=== PATIENT | male | born 1970 | race American Indian/Alaskan Native ===

== ENCOUNTER 2017-04-07 21:13 | Emergency (ER) | payer OTHER ==
--- NOTE | 2017-04-07 21:36 | Emergency Department Report ---
ED Extremity Problem HPI - General Stated complaint: LT LEG PAIN Time Seen by Provider: 04/07/17 21:34 Source: patient, EMS Mode of arrival: Stretcher Limitations: No Limitations - History of Present Illness Initial comments: 46 YO MALE THAT FELL DOWN ABOUT 8-10 STEPS AT HOME. PER EMS , HE HAD LEFT LEG SWELLING AND DEFORMITY. PT C/O LEFT LEG PAIN AND SWELLING . NO NUMBNESS ANYWHERE. MD Complaint: extremity pain, extremity swelling, joint swelling -: Sudden, hour(s) (1HR) Location: left, lower extremity History of Same: No Severity scale (0 -10): 10 Quality: aching, constant Consistency: constant Improves with: immobilization, rest Worsens with: weight bearing, walking, exertion Associated Symptoms: denies other symptoms - Related Data Home Medications Medication Instructions Recorded Confirmed Last Taken Aspirin EC [Aspirin Enteric Coated 81 mg PO QDAY 10/29/15 10/29/15 2 Days Ago TAB] ~10/27/15 Previous Rx's Medication Instructions Recorded Last Taken Type Famotidine [Pepcid] 20 mg PO DAILY #14 tablet 10/30/15 Unknown Rx Nicotine [Habitrol] 21 mg TD QDAY #30 patch 10/30/15 Unknown Rx Naproxen [Naprosyn] 500 mg PO BID #20 tablet 04/07/17 Unknown Rx oxyCODONE /ACETAMINOPHEN [Percocet 2 tab PO Q6HR PRN #14 tablet 04/07/17 Unknown Rx 5/325] Allergies Allergy/AdvReac Type Severity Reaction Status Date / Time No Known Allergies Allergy Verified 10/29/15 12:23 ED Review of Systems ROS: Stated complaint: LT LEG PAIN Other details as noted in HPI Constitutional: denies: chills, fever Eyes: denies: eye pain, eye discharge, vision change ENT: denies: ear pain, throat pain Respiratory: denies: cough, shortness of breath, wheezing Cardiovascular: denies: chest pain, palpitations Endocrine: no symptoms reported Gastrointestinal: denies: abdominal pain, nausea, diarrhea Genitourinary: denies: urgency, dysuria Musculoskeletal: joint swelling, arthralgia. denies: back pain Skin: denies: rash, lesions Neurological: denies: headache, weakness, paresthesias Psychiatric: denies: anxiety, depression Hematological/Lymphatic: denies: easy bleeding, easy bruising ED Past Medical Hx - Past Medical History Previous Medical History?: Yes Hx Congestive Heart Failure: No Hx Diabetes: No Hx Pulmonary Embolism: No Hx Asthma: No Hx COPD: No Hx HIV: No - Surgical History Hx Open Heart Surgery: No Hx Cholecystectomy: No Hx Appendectomy: No Hx Breast Surgery: No - Family History Family history: hypertension - Social History Smoking Status: Current Every Day Smoker - Medications Home Medications: Home Medications Medication Instructions Recorded Confirmed Last Taken Type Aspirin EC [Aspirin Enteric Coated 81 mg PO QDAY 10/29/15 10/29/15 2 Days Ago History TAB] ~10/27/15 Famotidine [Pepcid] 20 mg PO DAILY #14 tablet 10/30/15 Unknown Rx Nicotine [Habitrol] 21 mg TD QDAY #30 patch 10/30/15 Unknown Rx Naproxen [Naprosyn] 500 mg PO BID #20 tablet 04/07/17 Unknown Rx oxyCODONE /ACETAMINOPHEN [Percocet 2 tab PO Q6HR PRN #14 tablet 04/07/17 Unknown Rx 5/325] ED Physical Exam - General General appearance: alert, in no apparent distress - Head Head exam: Present: atraumatic, normocephalic - Eye Eye exam: Present: normal appearance, EOMI - ENT ENT exam: Present: mucous membranes moist - Neck Neck exam: Present: normal inspection, full ROM - Respiratory Respiratory exam: Present: normal lung sounds bilaterally. Absent: respiratory distress, wheezes, rales - Cardiovascular Cardiovascular Exam: Present: regular rate, normal rhythm. Absent: systolic murmur, diastolic murmur, rubs, gallop - GI/Abdominal GI/Abdominal exam: Present: soft, normal bowel sounds - Rectal Rectal exam: Present: deferred - Extremities Exam Extremities exam: Present: normal inspection, tenderness (OVER THE LEFT PATELLAE ,NO DISLOCATION,NO ERYTHEMA) - Back Exam Back exam: Present: normal inspection, full ROM - Neurological Exam Neurological exam: Present: alert, oriented X3, CN II-XII intact - Psychiatric Psychiatric exam: Present: normal affect, normal mood - Skin Skin exam: Present: warm, dry, intact, normal color. Absent: rash ED Course Vital Signs 04/07/17 04/07/17 21:54 22:12 Temperature 98 F Pulse Rate 84 Respiratory 20 Rate Blood Pressure 143/82 ED Medical Decision Making - Radiology Data Radiology results: report reviewed (XRAY LEFT TIB/FIB/KNEE/FEMUR: NO ACUTE FRACTURE, PATELLA SAUL) Critical care attestation.: If time is entered above; I have spent that time in minutes in the direct care of this critically ill patient, excluding procedure time. ED Disposition Clinical Impression: Patella saul Strain of knee and leg, left Qualifiers: Encounter type: initial encounter Qualified Code(s): S86.912A - Strain of unspecified muscle(s) and tendon(s) at lower leg level, left leg, initial encounter Disposition: TO HOME OR SELFCARE Is pt being admited?: No Does the pt Need Aspirin: No Condition: Stable Instructions: Knee Sprain (ED), Knee Immobilizer (ED) Additional Instructions: DIAGNOSIS ; PATELLAE SAUL - PLEASE SEE YOUR DOCTOR WITH IN TWO DAYS OR FOLLOW UP WITH DR HADDAD IN TWO DAYS IF YOU HAVE ANY PROBLEMS WITH YOUR KNEE Prescriptions: Naproxen [Naprosyn] 500 mg PO BID #20 tablet oxyCODONE /ACETAMINOPHEN [Percocet 5/325] 2 tab PO Q6HR PRN #14 tablet PRN Reason: Pain Referrals: PRIMARY CAREMD [Primary Care Provider] - 3-5 Days MIKE HADDAD MD [Staff Physician] - 3-5 Days Time of Disposition: 23:33
[2017-04-07] MEDS ORDERED: TORADOL IV ONE (21:59)
--- NOTE | 2017-04-07 22:48 | XRay Report ---
FINAL REPORT PROCEDURE: XR FEMUR 2+V LT TECHNIQUE: LEFT femur radiographs, AP and lateral views. HISTORY: fall COMPARISON: No prior studies are available for comparison. FINDINGS: Fracture (s) and/or Dislocation(s): None . Joint space(s): Normal . Soft tissues: Normal . Bone mineralization: Normal . Foreign bodies: None . Other: There is patella [place] IMPRESSION: No fracture Patella Tina.
--- NOTE | 2017-04-07 22:51 | XRay Report ---
FINAL REPORT PROCEDURE: XR TIBIA FIBULA 2V LT TECHNIQUE: LEFT tibia and fibula radiographs, AP and lateral views. CPT 51419 HISTORY: fall COMPARISON: No prior studies are available for comparison. FINDINGS: Fracture (s) and/or Dislocation(s): None . Joint space(s): Normal . Soft tissues: Normal . Bone mineralization: Normal . Foreign bodies: None . IMPRESSION: Normal Examination.
--- NOTE | 2017-04-07 22:51 | XRay Report ---
FINAL REPORT PROCEDURE: XR KNEE 1-2V LT TECHNIQUE: Left knee radiographs, AP and lateral views. HISTORY: fall COMPARISON: No prior studies are available for comparison. FINDINGS: Fracture (s) and/or Dislocation(s): No acute fracture. There is patella [place]. Joint space(s): Normal. Soft tissues: Anterior swelling Bone mineralization: Normal. Foreign bodies: None. IMPRESSION: Patella Tina. Soft tissue swelling.
[2017-04-08 00:18] VITALS: BP 147/88
== END 2017-04-08 00:22 | disposition home or self-care (01) ==
LOC: ED 21:13
DX: S86.812A Strain of other muscle(s) and tendon(s) at lower leg level, left leg, initial encounter (principal); Z79.82 Long term (current) use of aspirin; W10.8XXA Fall (on) (from) other stairs and steps, initial encounter; Y93.89 Activity, other specified; Y92.89 Other specified places as the place of occurrence of the external cause; Y99.8 Other external cause status
CPT/HCPCS: 29505; 73552; 73560; 73590; 96374; 99284; J1885